=== PATIENT | male | born 1940 | race Caucasian/White ===

== ENCOUNTER 2017-04-07 17:01 | Emergency (ER) | payer MEDICARE, BC ==
[~2017-04-07 17:01] MED LIST: AFRIN NASAL SPR15 ML; CENTRUM PO; DIOVAN320 MG PO; DIOVAN40 MG PO; FERROUS GLUCON324 MG PO; FISH OIL 1,0001 CAP PO; FISH OIL 1,0001 EAC1 PO; HIGH POTENCY B1 TAB PO; HYDROCODON-ACE1 EAC9 PO; LEVAQUIN750 MG PO; LORTAB 7.5-5001 TAB PO; LOSARTAN POTAS100 MG PO; MICARDIS40 MG PO; MOBIC PO; MONTELUKAST SOD10 MG PO; PREDNISONE10 MG PO; SYMBICORT INH; TEGRETOL PO; TEGRETOL XR PO; TEGRETOL XR200 M1 PO; TEGRETOL XR200 MG PO; TEGRETOL XR400 MG PO; TEGRETOL-XR200 MG; TEGRETOL-XR200 MG PO; TEMAZEPAM30 MG PO; TUDORZA PRESS400 MCG IH; XARELTO15 MG PO
[2017-05-01] MEDS ORDERED: TEGRETOL XR400 MG PO (13:44)
[2017-05-01] MEDS ORDERED: XARELTO20 MG PO (13:46)
[2017-05-01] MEDS ORDERED: SERTRALINE HCL25 M1 PO (13:47)
[2017-05-01] MEDS ORDERED: FLOMAX0.4 M1 PO (13:48)
[2017-05-01] MEDS ORDERED: CENTRUM COMPLE1 EACH PO (13:49)
[2017-05-01] MEDS ORDERED: VITAMIN B COMP1 EACH PO (13:50)
== END 2017-04-07 20:04 | disposition home or self-care (01) ==
LOC: CFTX 17:01 → CED 17:01 → CFTX 19:41
DX: L02.11 Cutaneous abscess of neck (principal); I10 Essential (primary) hypertension; J45.909 Unspecified asthma, uncomplicated; J44.9 Chronic obstructive pulmonary disease, unspecified; F41.9 Anxiety disorder, unspecified; F32.9 Major depressive disorder, single episode, unspecified; Z98.890 Other specified postprocedural states; Z23 Encounter for immunization
CPT/HCPCS: 10060; 87070; 87205; 90471; 90715; 99283

== ENCOUNTER → 2017-05-01 | Outpatient (CLI) | payer MEDICARE, BC ==
[~2017-05-01] MED LIST changes: +CENTRUM COMPLE1 EACH PO; +FLOMAX0.4 M1 PO; +SERTRALINE HCL25 M1 PO; +VITAMIN B COMP1 EACH PO; +XARELTO20 MG PO
--- NOTE | ~2017-05-01 | EKG ---
PATIENT: MORENITA LOPEZ UNIT #: [id number] Ventricular Rate: 69 BPM Atrial Rate: 69 BPM QRS Duration: 80 ms Q-T Interval: 390 ms QTC Calculation(Bezet): 417 ms Calculated R [place]: -24 degrees Calculated T [place]: 87 degrees Diagnosis Line: Normal sinus rhythm Diagnosis Line: Abnormal ECG Diagnosis Line: When compared with ECG of 15-MAY-2015 13:13, Diagnosis Line: Atrial fibrillation has replaced Sinus rhythm Diagnosis Line: Nonspecific T wave abnormality now evident in Diagnosis Line: Lateral leads Diagnosis Line: Confirmed by ADELA GREGG MD ([id number]) on Diagnosis Line: 05/03/2017 7:28:45 AM INTERPRETING MD: CRISTINO FORTE
[2017-05-01 14:49] LABS: HEMATOCRIT 43.1 % (38.0-50.0); HEMOGLOBIN 13.6 gm/dL (13.0-16.0); MEAN CELL VOLUME 79.6 FL (83-96); MEAN CORPUSCULAR HEMOGLOBIN 25.2 PG (28-34); MEAN CORPUSCULAR HGB CONC 31.7 g/dL (30-36); MEAN PLATELET VOLUME 7.3 FL (6.5-11.5); RED BLOOD COUNT 5.41 X10e (3.90-5.60); RED CELL DISTRIBUTION WIDTH 18.1 % (11.0-15.5); WHITE BLOOD COUNT 8.5 X10e3 (4.0-10.5)
== END | disposition home or self-care (01) ==
LOC: CAMB 13:19
PROVIDERS: Surgery
DX: Z01.818 Encounter for other preprocedural examination (principal); R94.31 Abnormal electrocardiogram [ECG] [EKG]; I48.91 Unspecified atrial fibrillation
CPT/HCPCS: 85027; 93005

== ENCOUNTER → 2017-05-06 | Day surgery (SDC) | payer MEDICARE, BC ==
--- NOTE | ~2017-05-06 | OR ---
Unit #: [id number] #: [id number] Patient: MORENITA LOPEZ [id number] [address] [place], [place] [address] [id number] O MR#: [id number] NAME: MORENITA LOPEZ ROOM: Date of Procedure: 05/06/2017 Admission Date: 05/06/2017 Surgeon: Ld Chandler M.D. : 1940 Attending Physician: Ld Chandler M.D. Primary Care Physician: Radha Sweet M.D. OPERATIVE REPORT PREOPERATIVE DIAGNOSIS Ductal carcinoma in situ, central aspect right breast. POSTOPERATIVE DIAGNOSIS Ductal carcinoma in situ, central aspect right breast. PROCEDURE PERFORMED Needle localization lumpectomy, right breast central aspect. ANESTHESIA General LMA anesthesia with 0.5% Marcaine plain local anesthesia. FINDINGS The patient's initial specimen had calcifications present as well as the wire. The clip was not present. An additional deep margin was taken, which contained the clip. SPECIMENS Sent to pathology. COMPLICATIONS None apparent. CONDITION The patient tolerated the procedure well. INDICATIONS FOR PROCEDURE The patient is a 61-year-old white female, who was recently found to have an abnormality in the right breast central aspect on mammography. She underwent a stereotactic biopsy, which returned DCIS with no evidence of invasion. She had options explained to the patient including mastectomy versus breast conservation therapy. She wishes to proceed with needle localization lumpectomy. She has met with Dr. Burger of Medical Oncology and Dr. Nick Cox of Radiation Oncology as well. DESCRIPTION OF PROCEDURE After obtaining informed consent as well as receiving preoperative antibiotics, the patient who earlier in the day underwent needle localization, was brought to the operating room and after adequate general LMA anesthesia was obtained, had her right breast prepped and draped in a Unit #: [id number] #: [id number] Patient: MORENITA LOPEZ sterile fashion. A small transverse incision was made in the area just medial to the medial aspect of the areola with a knife and taken down through the skin with a knife and through the subdermal tissues and subcutaneous tissues with electrocautery. The wire was found and the area around the hook of the wire was grasped with an Allis clamp and it was circumferentially excised with good hemostasis and sent to pathology. The specimen in this area contained the wire as well as calcifications, but did not contain initial biopsy clip. There was a firm area in the area of the deep margin. This was grasped with an Allis clamp and was excised circumferentially through normal tissue and was sent to mammography, and this did indeed contain the clip and some additional calcifications. The wound was irrigated. Hemostasis was obtained with the Bovie, infiltrated with 0.5% Marcaine plain local anesthesia. The subdermal tissues were reapproximated with interrupted 3-0 Vicryl suture. The skin was closed with 4-0 Vicryl subcuticular stitch. Benzoin and Steri-Strips were applied over the wound in an occlusive manner followed by dry dressing and a Tegaderm dressing. Needle counts, sponge counts, and instrument counts were all correct as reported by the scrub nurse x2. The patient went from the operative room to the recovery room in stable condition. Dictated by... Kenyatta Mendoza/castillo TD: 05/06/2017 20:14 JOB #: [id number] CC: [facility] OPERATIVE REPORT Page 1 of 1 X Ld Chandler MD X PROCEDURE OPERATIVE NOTE
--- NOTE | ~2017-05-06 | OR ---
Unit #: [id number] #: [id number] Patient: MORENITA LOPEZ [id number] [address] [address] [id number] O MR#: [id number] NAME: MORENITA LOPEZ ROOM: Date of Procedure: 05/06/2017 Admission Date: 05/06/2017 Surgeon: Ld Chandler M.D. : 1940 Attending Physician: Ld Chandler M.D. Primary Care Physician: Radha Sweet M.D. OPERATIVE REPORT PREOPERATIVE DIAGNOSES 1. Chronically inflamed sebaceous cyst, left neck 2 cm. 2. Chronically inflamed sebaceous cyst, right upper face, 1 cm. ANESTHESIA General LMA anesthesia with 0.5% Marcaine plain local anesthesia. PROCEDURES PERFORMED 1. Excision of chronically inflamed sebaceous cyst, left neck 2 cm with layered closure. 2. Excision of chronically inflamed sebaceous cyst, 1 cm right upper face with layered closure. SPECIMENS Sent to pathology. COMPLICATIONS None apparent. FINDINGS Each area was excised and sent to pathology. CONDITION The patient tolerated the procedure well. INDICATIONS FOR PROCEDURE The patient is a 76-year-old white male, who has a chronically inflamed sebaceous cyst of the left neck and of the right upper face. He presents at this time for excision for pathologic diagnosis and treatment. DESCRIPTION OF PROCEDURE After informed consent as well as receiving preoperative antibiotics, the patient was brought to the operating room and after adequate general LMA anesthesia was obtained, his left neck prepped and draped in a sterile fashion. An elliptical incision was made in the direction of skin lines with a knife and taken down through the subdermal tissues and subcutaneous tissue with electrocautery. The area was completely excised with good hemostasis and sent to pathology. The wound was irrigated and hemostasis was obtained with Bovie, infiltrated with 0.5% Marcaine plain local anesthesia. The deep tissues were reapproximated with interrupted 3-0 Vicryl suture and the skin was closed with a running 4-0 nylon suture. A dry dressing was applied followed by a Tegaderm dressing. At this point Unit #: [id number] #: [id number] Patient: MORENITA LOPEZ in time, new drapes were brought up. Instruments were pulled off and the right upper face was prepped and draped in a sterile fashion. An elliptical incision was made with a knife. It was taken down through the skin to the level of the lesion. The lesion was excised with tenotomy scissors. It was sent to pathology. Good hemostasis was noted with the Bovie. All areas were infiltrated with 0.5% Marcaine plain local anesthesia. The deep tissues were reapproximated with 3-0 Vicryl suture and the skin was closed with interrupted 5-0 nylon simple sutures. A dry dressing was applied in the form of multiple layers of 1/2-inch Steri-Strips. Needle counts, sponge counts, and instrument counts were all correct as reported by the scrub nurse x2. The patient went from the operative room to the recovery room in stable condition. Dictated by... Kenyatta Mendoza/castillo TD: 05/06/2017 19:15 JOB #: [id number] CC: [facility] OPERATIVE REPORT Page 1 of 1 X Ld Chandler MD X PROCEDURE OPERATIVE NOTE
== END | disposition home or self-care (01) ==
LOC: CSUR 06:43
DX: L72.0 Epidermal cyst (principal); L57.8 Other skin changes due to chronic exposure to nonionizing radiation; I10 Essential (primary) hypertension; J43.9 Emphysema, unspecified; E78.5 Hyperlipidemia, unspecified; I48.91 Unspecified atrial fibrillation; G40.909 Epilepsy, unspecified, not intractable, without status epilepticus; N40.0 Benign prostatic hyperplasia without lower urinary tract symptoms; M17.10 Unilateral primary osteoarthritis, unspecified knee; F41.9 Anxiety disorder, unspecified; F32.9 Major depressive disorder, single episode, unspecified; F17.210 Nicotine dependence, cigarettes, uncomplicated; Z86.711 Personal history of pulmonary embolism; Z88.2 Allergy status to sulfonamides; Z88.8 Allergy status to other drugs, medicaments and biological substances; Z79.01 Long term (current) use of anticoagulants; Z79.899 Other long term (current) drug therapy; Z90.49 Acquired absence of other specified parts of digestive tract
CPT/HCPCS: 88304; J0131; J0690; J1644; J2405; J3010